=== PATIENT | female | born 1970 | race Caucasian/White ===

== ENCOUNTER → 2016-09-21 | Outpatient (CLI) | payer BC ==
[~2016-09-21] MED LIST: ACETAMINOPHEN325 MG PO; ADVIL PM CAPLE1 EACH PO; CEPHALEXIN500 M1 PO; LORTAB 7.5-5001 TAB PO; PHENERGAN25 MG PO; TYLENOL PM PO
--- NOTE | ~2016-09-21 | CR18 ---
[facility] A Service of [facility] & [facility] RADIOLOGY TEXT RESULTS PATIENT: MOHAN HUGO LOCATION: [facility] : 66 UNIT #: [id number] AGE: [address]: Holly Horowitz MD SEX: F ORDER DR: [id number] [facility] [address] [place], [place] [address] [id number] O MR#: [id number] Acc #: [id number] NAME: MOHAN HUGO. : 1970 SEX: F STUDY DATE/TIME: 09/21/2016 13:04 UNIT: [facility] ROOM: STUDY DESCRIPTION: CR Ankle 2 Views Rt Attending Physician: Holly Horowitz M.D. Referring Physician: Holly Horowitz M.D. Ordering Physician: Holly Horowitz M.D. Primary Care Physician: Holly Horowitz M.D. MEDICAL IMAGING REPORT This report is preliminary unless electronic signature is present EXAM Right ankle, 3 views; 09/21/2016. HISTORY Right ankle pain, status post fall two days ago. FINDINGS AP, lateral, and oblique projections of the ankle show satisfactory integrity of the joint mortise with a smooth articular surface. There is no identifiable fracture, dislocation, or radiopaque foreign body. IMPRESSION Normal right ankle. Dictated by... Alfonso Eduardo M.D. THIS IS AN ELECTRONICALLY VERIFIED REPORT Alfonso Eduardo M.D. at 09/22/2016 2:17 PM ÁNGEL/donn TD: 09/21/2016 21:56 JOB #: [id number] MEDICAL IMAGING REPORT Page 1 of 1 COPY
--- NOTE | ~2016-09-21 | CR211 ---
[facility] A Service of [facility] RADIOLOGY TEXT RESULTS PATIENT: MOHAN HUGO LOCATION: [facility] : 66 UNIT #: [id number] AGE: [address]: Holly Horowitz MD SEX: F ORDER DR: [id number] [facility] [address] [place] [address] [place], [place] [address] [id number] O MR#: [id number] Acc #: [id number] NAME: MOHAN HUGO. : 1970 SEX: F STUDY DATE/TIME: 09/21/2016 13:03 UNIT: [facility] ROOM: STUDY DESCRIPTION: CR Ribs Uni 2 View W PA Ch Rt Attending Physician: Holly Horowitz M.D. Referring Physician: Holly Horowitz M.D. Ordering Physician: Holly Horowitz M.D. Primary Care Physician: Holly Horowitz M.D. MEDICAL IMAGING REPORT This report is preliminary unless electronic signature is present EXAM Chest and right ribs 4 views, 09/21/2016 HISTORY Right side chest and rib pain status post fall 2 days ago. FINDINGS The heart is normal in size. The lungs are clear. There are no pleural effusions. Images of the right ribs demonstrate no fracture. IMPRESSION Negative chest and right ribs. Dictated by... Alfonso Eduardo M.D. THIS IS AN ELECTRONICALLY VERIFIED REPORT Alfonso Eduardo M.D. at 09/22/2016 2:17 PM KRT/nick TD: 09/21/2016 21:40 JOB #: [id number] MEDICAL IMAGING REPORT Page 1 of 1 COPY
== END | disposition home or self-care (01) ==
LOC: CRAD 12:46
DX: S93.401A Sprain of unspecified ligament of right ankle, initial encounter (principal)
CPT/HCPCS: 71101; 73600